=== PATIENT | female | born 1970 | race Two or more races ===

== ENCOUNTER → 2017-02-21 | Outpatient (CLI) | payer BC ==
[2015-04-15 07:00] VITALS: BP 110/58
--- NOTE | 2017-02-21 10:08 | RAD ---
DATE: 02/21/2017 EXAM: DIGITAL SCREEN BILAT W/CAD HISTORY: Screening COMPARISON: None. This is a baseline exam. This study was interpreted with the benefit of Computerized Aided Detection (CAD). FINDINGS: Breast Density: SCATTERED The breast parenchyma shows scattered fibroglandular densities. Breast parenchyma level B. No dominant mass or suspect calcifications are seen in either breast IMPRESSION: Benign findings BI-RADS CATEGORY: 2 BENIGN FINDING(S) RECOMMENDED FOLLOW-UP: 12M 12 MONTH FOLLOW-UP PQRS compliance statement: Patient information was entered into a reminder system with a target due date 02/21/2018 for the next mammogram. Mammography is a sensitive method for finding small breast cancers, but it does not detect them all and is not a substitute for careful clinical examination. A negative mammogram does not negate a clinically suspicious finding and should not result in delay in biopsying a clinically suspicious abnormality. "Our facility is accredited by the [employer] Mammography [employer]."
== END | disposition home or self-care (01) ==
LOC: MAMMO 09:10
PROVIDERS: ATTEND Obstetrics & Gynecology
DX: Z12.31 Encounter for screening mammogram for malignant neoplasm of breast (principal)
CPT/HCPCS: G0202; 77067

== ENCOUNTER → 2018-02-22 | Outpatient (CLI) | payer BC ==
[2015-04-15 07:00] VITALS: BP 110/58
--- NOTE | 2018-02-22 15:53 | RAD ---
DATE: 02/22/2018 EXAM: DIGITAL SCREEN BILAT W/CAD HISTORY: Routine screening COMPARISON: 02/21/2017 This study was interpreted with the benefit of Computerized Aided Detection (CAD). Breast Density: SCATTERED The breast parenchyma shows scattered fibroglandular densities. Breast parenchyma level B. FINDINGS: No new or enlarging breast densities are seen. No suspicious microcalcifications are evident. IMPRESSION: There is no mammographic evidence of malignancy in either breast. BI-RADS CATEGORY: 2 BENIGN FINDING(S) RECOMMENDED FOLLOW-UP: 12M 12 MONTH FOLLOW-UP PQRS compliance statement: Patient information was entered into a reminder system with a target due date for the next mammogram. Mammography is a sensitive method for finding small breast cancers, but it does not detect them all and is not a substitute for careful clinical examination. A negative mammogram does not negate a clinically suspicious finding and should not result in delay in biopsying a clinically suspicious abnormality. "Our facility is accredited by the [employer] Mammography Program."
== END | disposition home or self-care (01) ==
LOC: MAMMO 14:01
PROVIDERS: ATTEND Obstetrics & Gynecology
DX: Z12.31 Encounter for screening mammogram for malignant neoplasm of breast (principal)
CPT/HCPCS: 77067

== ENCOUNTER → 2018-09-27 | Outpatient (CLI) | payer BC ==
[2015-04-15 07:00] VITALS: BP 110/58
--- NOTE | 2018-09-27 16:50 | RAD ---
EXAM: Right calcaneus, 2 views. HISTORY: Pain. COMPARISON: None. FINDINGS: 2 views of the right calcaneus are obtained. There is slight enthesopathy at the Achilles tendon insertion. There is a tiny plantar spur. There is no fracture, dislocation or subluxation. No lytic or sclerotic osseous lesion is seen. IMPRESSION: No acute osseous finding. Electronically signed by: Tamra Babcock MD (09/27/2018 4:47 PM) [facility]
== END | disposition home or self-care (01) ==
LOC: RAD 15:59
PROVIDERS: ATTEND Family Medicine
DX: M77.51 Other enthesopathy of right foot and ankle (principal)
CPT/HCPCS: 73650

== ENCOUNTER → 2019-06-21 | Outpatient (CLI) | payer BC ==
[2018-10-20 11:00] VITALS: BP 138/62
[~2019-06-21] MED LIST: FERR325T20 PO; PANT20TA2 PO
--- NOTE | 2019-06-22 15:36 | RAD ---
History: Routine screening. Technique: Bilateral digital mammographic routine views were obtained with CAD - computer aided detection. Comparison: 02/21/2017, 02/22/2018. Findings: Breast Tissue Density B :The breast tissue is composed of mixed fatty and fibroglandular tissue. There are no suspicious masses, microcalcifications or areas of architectural distortion. Impression: Negative mammogram. BI-RADS Category 1: Negative. Normal interval followup. A mammogram does not have 100% sensitivity and therefore a negative imaging study should not delay further work up of a suspicious abnormality. The patient will receive a letter with the results in the mail. Patient information is entered into the reminder system with a target due date for the next screening mammogram. The patient will receive a reminder. "Our facility is accredited by the [employer] Mammography Program." BI-RADS 1 -- negative findings (within normal)
== END ==
LOC: MAMMO 08:00
PROVIDERS: ATTEND Obstetrics & Gynecology
DX: Z12.31 Encounter for screening mammogram for malignant neoplasm of breast (principal)
CPT/HCPCS: 77067

== ENCOUNTER → 2019-06-26 | Outpatient (CLI) | payer BC ==
[2018-10-20 11:00] VITALS: BP 138/62
--- NOTE | 2019-06-26 09:43 | RAD ---
EXAM: Pelvic Ultrasound Complete INDICATION: Pelvic mass ? TECHNIQUE: Real-time ultrasound of the pelvis with permanent freeze-frame documentation. Transabdominal imaging only was performed. Patient refused endovaginal ultrasound. COMPARISON:?None. ? FINDINGS: ? UTERUS:?Uterus 12.4 x 5.8 x 5.9 cm.? Endometrial thickness 0.7 cm. At the low uterine segment is a 5.6 x 5.2 cm round mass with internal vascularity. ? RIGHT OVARY/ADNEXA: Right ovary is obscured by bowel gas and not well seen. LEFT OVARY/ADNEXA:?Left ovary 2.9 x 2.3 x 2.8 cm. ?Unremarkable. Normal ovarian blood flow. ? OTHER:?No evidence of significant pelvic free fluid. ? IMPRESSION: ? A 5.6 cm round mass is present at the lower uterine segment, likely a uterine fibroid but would be better characterized endovaginal ultrasound or pelvic MRI. Otherwise, possibly from a nonvisualized right ovary due to bowel gas, pelvic ultrasound is unremarkable. Electronically signed by: Pat Moore MD (06/26/2019 9:39 AM) [id number]
== END | disposition home or self-care (01) ==
LOC: US 06:40
PROVIDERS: ATTEND Obstetrics & Gynecology
DX: R19.09 Other intra-abdominal and pelvic swelling, mass and lump (principal)
CPT/HCPCS: 76856

== ENCOUNTER 2020-11-22 15:26 | Inpatient (IN) | payer BC ==
[~2020-11-22] VITALS: Ht 167.6 cm; Wt 110.1 kg
--- NOTE | 2020-11-22 15:57 | RAD ---
EXAM: Chest, single view. HISTORY: Palpitations. COMPARISON: None. FINDINGS: A frontal view of the chest is obtained. There is no infiltrate, pleural effusion or pneumo thorax. There is a prominent cardiac silhouette, likely accentuated due to a moderate hiatal hernia. IMPRESSION: Prominent cardiac silhouette, likely accentuated due to a moderate hiatal hernia. Electronically signed by: Tamra Babcock MD (11/22/2020 3:54 PM) [facility]
[2020-11-22 15:58] LABS: BILIRUBIN,URINE NEGATIVE (NEG); CLARITY,URINE CLEAR; NITRITE,URINE NEGATIVE (NEG); PH,URINE 6.5 (<5.0-8.0); PROTEIN,URINE NEGATIVE (NEG-TRACE); UROBILINOGEN,URINE 0.2 mg/dL (0.2 mg/dL)
[2020-11-22 16:03] LABS: BARBITURATES NEG (NEG); BENZODIAZEPINES NEG (NEG); CANNABINOIDS NEG (NEG); COCAINE NEG (NEG); METHADONE NEG (NEG); OPIATES NEG (NEG); PHENCYCLIDINE NEG (NEG)
[2020-11-22 16:05] LABS: AMPHETAMINE/METHAMPHETAMINE NEG (NEG)
--- NOTE | 2020-11-22 16:08 | PHYS DOC ---
Past Medical History Past Medical History: No Pertinent History Past Surgical History: , Other Additional Past Surgical Histo: left knee Smoking Status: Never Smoker Alcohol Use: None Drug Use: None General Adult EDM: Chief Complaint: Palpitations HPI: HPI: Patient is a 50 year old female who presents with Tuesday. She states she was just sitting and began having palpitations and become dizzy and then passed out. She states since then she has been having these same spells but has not been passing out. Patient states that she takes no medications other than some ibuprofen or Tylenol. Patient denies chest pain, shortness of breath, vision change, numbness or tingling, focal weakness, abdominal pain, nausea, vomiting, diarrhea, back pain, urinary symptoms, blood in her stool or urine. History is CVA, anemia and a GI bleed. I asked the patient about her anemia and GI bleed and she states that she has not had a menstrual period in the last 7 months but she never bled that much. She states that Dr. Urena had stated to her that she had a GI bleed but she had a colonoscopy 2 years ago when they did not see any bleeding. She states she has not seen any blood in her stool. Review of Systems: Review of Systems: Constitutional: Denies fever or chills. [] Eyes: Denies change in visual acuity. [] HENT: Denies nasal congestion or sore throat. [] Respiratory: Denies cough or shortness of breath. [] Cardiovascular: Denies chest pain or edema. [] GI: Denies abdominal pain, nausea, vomiting, bloody stools or diarrhea. [] : Denies dysuria. [] Musculoskeletal: Denies back pain or joint pain. [] Integument: Denies rash. [] Neurologic: Denies headache, focal weakness or sensory changes. [] Endocrine: Denies polyuria or polydipsia. [] Lymphatic: Denies swollen glands. [] Psychiatric: Denies depression or anxiety. [] Heart Score: C/O Chest Pain: No HEART Score for Chest Pain: HEART Score for Chest Pain Response (Comments) Value History Slighlty/Non-Suspicious 0 ECG Normal 0 Age >45 - < 65 1 Risk Factors 1 or 2 Risk Factors 1 Troponin < Normal Limit 0 Total 2 Risk Factors: Risk Factors: DM, Current or recent (<one month) smoker, HTN, HLP, family history of CAD, obesity. Risk Scores: Score 0 - 3: 2.5% MACE over next 6 weeks - Discharge Home Score 4 - 6: 20.3% MACE over next 6 weeks - Admit for Clinical Observation Score 7 - 10: 72.7% MACE over next 6 weeks - Early Invasive Strategies Allergies: Allergies: Allergies Coded Allergies Type Severity Reaction Last Updated Verified No Known Drug Allergies 04/13/15 No Physical Exam: PE: Constitutional: Well developed, well nourished, no acute distress, non-toxic appearance. [] HENT: Normocephalic, atraumatic, bilateral external ears normal, oropharynx moist, no oral exudates, nose normal. [] Eyes: PERRLA, EOMI, conjunctiva normal, no discharge. [] Neck: Normal range of motion, no tenderness, supple, no stridor. [] Cardiovascular:Heart rate regular rhythm, no murmur [] Lungs & Thorax: Bilateral breath sounds clear to auscultation [] Abdomen: Bowel sounds normal, soft, no tenderness, no masses, no pulsatile masses. [] Skin: Warm, dry, no erythema, no rash. [] Back: No tenderness, no CVA tenderness. [] Extremities: No tenderness, no cyanosis, no clubbing, ROM intact, no edema. [] Neurologic: Alert and oriented X 3, normal motor function, normal sensory function, no focal deficits noted. [] Psychologic: Affect normal, judgement normal, mood normal. [] EKG: EK and read by Dr. Gonzalez is a sinus rhythm and no STEMI [] [address] Gonzalez as Sinus rhythm and no ATEMI Radiology/Procedures: Radiology/Procedures: [] Impression: [facility] [address] [place], [place] [id number] IMAGING REPORT Signed PATIENT: SHADI ANDERSONUNT: [id number] : 1970 LOCATION: ER AGE: 50 SEX: F EXAM STATUS: PRE ER ORD. PHYSICIAN: SERGEI MELO APRN REASON: palpitations PROCEDURE: PORTABLE CHEST 1V EXAM: Chest, single view. HISTORY: Palpitations. COMPARISON: None. FINDINGS: A frontal view of the chest is obtained. There is no infiltrate, pleural effusion or pneumothorax. There is a prominent cardiac silhouette, likely accentuated due to a moderate hiatal hernia. IMPRESSION: Prominent cardiac silhouette, likely accentuated due to a moderate hiatal hernia. Electronically signed by: Tamra Matthews MD (11/22/2020 3:54 PM) [facility] DICTATED and SIGNED BY: TAMRA MATTHEWS MD DATE: 11/22/20 [id number] [facility] [address] [place] [address] IMAGING REPORT Signed PATIENT: SHADI ANDERSONUNT: [id number] : 1970 LOCATION: ER AGE: 50 SEX: F EXAM STATUS: REG ER ORD. PHYSICIAN: SERGEI MELO APRN REASON: palpitations, syncope PROCEDURE: CT HEAD WO CONTRAST Exam: CT head INDICATION: Palpitations, syncope TECHNIQUE: Sequential axial images through the head were obtained without the administration of IV contrast. Exposure: One or more of the following in the visualized dose reduction techniques were utilized for this examination: 1. Automated exposure control 2. Adjustment of the MA and/or KV according to patient size 3. Use of iterative of reconstructive technique Comparisons: None FINDINGS: No focal parenchymal lesion or hemorrhage is identified. There is no midline shift or sulcal effacement. Mild patchy evidence in the periventricular white matter No acute vascular territory infarction is identified. Raya-white distinction is preserved. The ventricular system is within normal limits without compression hydrocephalus. The basal cisterns are well maintained. The visualized portions of the paranasal sinuses and mastoid air cells are well- pneumatized. No acute fractures. IMPRESSION: Mild small vessel schema change, technically age indeterminate without recent prior imaging. Electronically signed by: Raul Newton MD (11/22/2020 5:05 PM) [facility] DICTATED and SIGNED BY: RAUL NEWTON MD DATE: 11/22/20 [id number] 0 [facility] [address] [place] [address] IMAGING REPORT Signed PATIENT: KATHARINA ANDERSONCOUNT: [id number] : 1970 LOCATION: ER AGE: 50 SEX: F EXAM STATUS: REG ER ORD. PHYSICIAN: SERGEI MELO APRN REASON: palpitations, syncope/ anemia, hx gi bleed PROCEDURE: CT ANGIO CHEST W ABD PEL W/ Exam: CT of chest, abdomen and pelvis INDICATION: Palpitations, syncope TECHNIQUE: Sequential axial images through the chest obtained following the administration 100 mL of Omni 350 IV contrast. Sagittal and coronal reformatted images were reconstructed from the axial data and reviewed. 3-D reformatted images were reconstructed from the axial data and reviewed. Exposure: One or more of the following in the visualized dose reduction techniques were utilized for this examination: 1. Automated exposure control 2. Adjustment of the MA and/or KV according to patient size 3. Use of iterative of reconstructive technique Comparisons: None FINDINGS: Utilized portions of the thyroid are unremarkable. No enlarged mediastinal lymph nodes are identified. Heart size is normal. No pericardial effusion. Thoracic aorta has a normal course and caliber. Pulmonary artery is not enlarged. No pulmonary embolus identified within the main or lobar pulmonary arteries. Airways are patent. No consolidation or pneumothorax. No suspicious lung nodules are identified. No pleural effusion or thickening. Liver, spleen, pancreas, gallbladder and adrenals are unremarkable. No perinephric inflammation or hydronephrosis. No renal or ureteral calculi are identified. Bladder is partially distended and appears thin-walled. Uterus is nonenlarged. No abnormal adnexal mass. Large and small bowel are unremarkable. Appendix is normal. No free intra- abdominal air or fluid. No obstruction. Abdominal aorta has normal course and caliber. Abdominal vasculature is patent. No enlarged intra-abdominal lymph nodes are identified. No suspicious osseous lesions or acute fractures. IMPRESSION: 1. No pulmonary embolus identified within the main, lobar or segmental pulmonary arteries. 2. No acute process identified in the abdomen 3. Moderate-sized hiatal hernia. Electronically signed by: Raul Newton MD (11/22/2020 5:40 PM) [facility] DICTATED and SIGNED BY: RAUL NEWTON MD DATE: 11/22/20 [id number] 0 Course & Med Decision Making: Course & Med Decision Making Pertinent Labs and Imaging studies reviewed. (See chart for details) See HPI. Alert and oriented x4. Ambulatory with steady gait. Speaks in full clear sentences. Abdomen is soft and nontender. No nystagmus. Lungs are clear in all lobes. Hemoglobin is 6.6. I have ordered a unit of blood for her. Patient will be admitted to Dr. Bryson. No extremity edema. Skin pink warm and dry. Chest x-ray is clear. I spoke to Dr. Bryson for admission. He stated to put in for a CBC in the morning. He stated the 1 unit of blood at this time was fine. [] Dragon Disclaimer: Dragon Disclaimer: This electronic medical record was generated, in whole or in part, using a voice recognition dictation system. Departure Departure Impression: Primary Impression: Anemia Qualified Codes: D64.9 - Anemia, unspecified Additional Impressions: Palpitations Syncope Qualified Codes: R55 - Syncope and collapse Disposition: ADMITTED INPATIENT Admitting Physician: Ryland Bryson Condition: STABLE Referrals: RYLAND BRYSON MD (PCP) SERGEI MELO APRN Nov 22, 2020 16:08
[2020-11-22 16:15] LABS: COLOR,URINE STRAW
[2020-11-22] MEDS ORDERED: IV NORMAL SALINE 1000ML BAG 1,000 ML IV ONE (16:15)
[2020-11-22 16:16] LABS: BACTERIA,URINE MODERATE /HPF (0-FEW)
[2020-11-22 16:17] LABS: RBC,URINE 0 /HPF (0-2); WBC,URINE RARE /HPF (0-4)
[2020-11-22 16:19] LABS: BASO % 1 % (0-3); EOS % 0 % (0-3); HEMATOCRIT 22.9 % (36.0-47.0); LYMPH # 2.1 x10^3/uL (1.0-4.8); LYMPH % 29 % (24-48); MEAN CORPUSCULAR HEMOGLOBIN 17 pg (25-35); MEAN CORPUSCULAR HGB CONC 29 g/dL (31-37); MEAN CORPUSCULAR VOLUME 58 fL (79-100); MONO # 0.7 x10^3/uL (0.0-1.1); MONO % 9 % (0-9); NEUT # 4.2 x10^3/uL (1.8-7.7); NEUT % 61 % (31-73); PLATELET COUNT 410 x10^3/uL (140-400); RED BLOOD COUNT 3.97 x10^6/uL (3.50-5.40); RED CELL DISTRIBUTION WIDTH 20.9 % (11.5-14.5)
[2020-11-22 16:22] LABS: HEMOGLOBIN 6.6 g/dL (12.0-15.5)
[2020-11-22 16:23] LABS: CALCIUM 8.9 mg/dL (8.5-10.1); CREATININE 0.8 mg/dL (0.6-1.0); GFR 75.3; POTASSIUM 3.7 mmol/L (3.5-5.1)
[2020-11-22 16:28] LABS: ALBUMIN 3.7 g/dL (3.4-5.0); ALBUMIN/GLOBULIN RATIO 0.9 (1.0-1.7); TOTAL BILIRUBIN 0.4 mg/dL (0.2-1.0); TOTAL PROTEIN 7.6 g/dL (6.4-8.2)
[2020-11-22] MEDS ORDERED: IOHEXOL 350 MG/ML 100 ML VIAL. IV ONE (16:30)
[2020-11-22] MEDS ORDERED: metroNIDAZOLE 500 MG TABLET PO ONE (16:45)
[2020-11-22] MEDS ORDERED: CONTRAST GIVEN. MC PRN (16:45)
[2020-11-22 16:55] LABS: HYPOCHROMIA MOD; MICROCYTOSIS MARKED; PLT ESTIMATE ADEQUATE (ADEQUATE); POLYCHROMASIA SLIGHT
[2020-11-22 16:56] LABS: ANISOCYTOSIS MOD
--- NOTE | 2020-11-22 17:07 | RAD ---
Exam: CT head INDICATION: Palpitations, syncope TECHNIQUE: Sequential axial images through the head were obtained without the administration of IV co ntrast. Exposure: One or more of the following in the visualized dose reduction techniques were utilized for this examination: 1. Automated exposure control 2. Adjustment of the MA and/or KV according to patient size 3. Use of iterative of reconstructive technique Comparisons: None FINDINGS: No focal parenchymal lesion or hemorrhage is identified. There is no midline shift or sulcal effaceme nt. Mild patchy evidence in the periventricular white matter No acute vascular territory infarction is id entified. Raya-white distinction is preserved. The ventricular system is within normal limits without compression hydrocephalus. The basal cisterns are well maintained. The visualized portions of the paranasal sinuses and mastoid air cells are well-pneumatized. No acute fractures. IMPRESSION: Mild small vessel schema change, technically age indeterminate without recent prior imaging. Electronically signed by: Raul Hunter MD (11/22/2020 5:05 PM) [facility]
[2020-11-22 17:42] LABS: PROTHROMBIN TIME PATIENT 14.2 SEC (11.7-14.0)
--- NOTE | 2020-11-22 17:43 | RAD ---
Exam: CT of chest, abdomen and pelvis INDICATION: Palpitations, syncope TECHNIQUE: Sequential axial images through the chest obtained following the administration 100 mL of Omni 350 IV contrast. Sagittal and coronal reformatted images were reconstructed from the axial data and reviewed. 3-D reformatted images were reconstructed from the axial data and reviewed. Exposure: One or more of the following in the visualized dose reduction techniques were utilized for this examination: 1. Automated exposure control 2. Adjustment of the MA and/or KV according to patient size 3. Use of iterative of reconstructive technique Comparisons: None FINDINGS: Utilized portions of the thyroid are unremarkable. No enlarged mediastinal lymph nodes are identified . Heart size is normal. No pericardial effusion. Thoracic aorta has a normal course and caliber. Pulmon surjit artery is not enlarged. No pulmonary embolus identified within the main or lobar pulmonary arteri es. Airways are patent. No consolidation or pneumothorax. No suspicious lung nodules are identified. No pleural effusion or thickening. Liver, spleen, pancreas, gallbladder and adrenals are unremarkable. No perinephric inflammation or hydronephrosis. No renal or ureteral calculi are identified. Bladder is partially distended and appears thin-walled. Uterus is nonenlarged. No abnormal adnexal ma ss. Large and small bowel are unremarkable. Appendix is normal. No free intra-abdominal air or fluid. No obstruction. Abdominal aorta has normal course and caliber. Abdominal vasculature is patent. No enlarged intra-abdominal lymph nodes are identified. No suspicious osseous lesions or acute fractures. IMPRESSION: 1. No pulmonary embolus identified within the main, lobar or segmental pulmonary arteries. 2. No acute process identified in the abdomen 3. Moderate-sized hiatal hernia. Electronically signed by: Raul Hunter MD (11/22/2020 5:40 PM) [facility]
--- NOTE | 2020-11-22 18:04 | EKG ---
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
--- NOTE | 2020-11-22 18:05 | EKG ---
[facility] [address] [place] [address] Test Date: 2020-11-22 Test Time: 15:38:47 Pat Name: AMANDA ANDERSONDepartment: Room: Gender: F Branch Operations Specialist: : 1970 Requested By: SERGEI MELO Order Number: [id number] Reading MD: Measurements Intervals [place] Rate: 75 P: 39 [place]: 136 QRS: 21 QRSD: 80 T: 22 QT: 366 QTc: 411 Interpretive Statements SINUS RHYTHM QRS(T) CONTOUR ABNORMALITY CONSIDER ANTEROLATERAL MYOCARDIAL DAMAGE POSSIBLY ABNORMAL ECG RI6.01 No previous ECG available for comparison
[2020-11-22 22:26] VITALS: BP 126/49
[2020-11-22 22:42] VITALS: BP 131/66
[2020-11-22 22:57] VITALS: BP 121/59
[2020-11-22 23:15] VITALS: BP 115/64
[2020-11-23] VITALS (7 sets, daily range): BP systolic 108–131; BP diastolic 43–66
[2020-11-23 01:42] LABS: HEMATOCRIT 24.5 % (36.0-47.0); HEMOGLOBIN 7.1 g/dL (12.0-15.5); RED BLOOD COUNT 4.02 x10^6/uL (3.50-5.40); RED CELL DISTRIBUTION WIDTH 22.5 % (11.5-14.5); WHITE BLOOD COUNT 6.1 x10^3/uL (4.0-11.0)
--- NOTE | 2020-11-23 10:37 | PDOC ---
Provider Note Date of Service: DATE: 11/23/20 TIME: 10:37 Provider Note Pt seen.H&P dictated.[id number]. Justifications for Admission Other Justification ROBINA BRYSON MD Nov 23, 2020 10:37
[2020-11-23] MEDS ORDERED: IRON SUCROSE COMPLEX 500 MG in IV NORMAL SALINE 250ML 250 ML IV ONE (11:00)
--- NOTE | 2020-11-23 11:25 | HP ---
ADMIT DATE: 11/22/2020 LOCATION: [facility] REASON FOR ADMISSION TO THE HOSPITAL: 1. Palpitations. 2. Anemia. HISTORY OF PRESENT ILLNESS: The patient is a 50-year-old female. The patient was having palpitations that was Tuesday and became lightheaded, dizzy, having the spells more often, came to the emergency room. Her hemoglobin was low at 6.8 and EKG negative for ischemia. The patient was admitted to the hospital, was given 1 unit of blood, hemoglobin went up to 7.1. Her troponin was 0.01, went up to 0.1. EKG negative for ischemia. alarm security or surveillance monitor negative. PAST MEDICAL HISTORY: The patient was in the hospital two years ago for anemia. At that time, recommended EGD and colonoscopy. The patient says she was anemic for a long time, many years and she took iron which made her constipated, she stopped. Last menstrual period was seven months ago. She went through menopause, did not have any EGD or colonoscopy in the past. PAST SURGICAL HISTORY: Had a also had knee problems, but is getting better. FAMILY HISTORY: Unremarkable. SOCIAL HISTORY: Smoking history: Denies smoking, alcohol, drug abuse. 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 ALLERGIES: No known allergies. MEDICATIONS: None. REVIEW OF SYSTEMS: She denies any vomiting blood or black stools and any other bleeding problems. PHYSICAL EXAMINATION: GENERAL: The patient is pleasant, not in any distress. VITAL SIGNS: Temperature 98, pulse 79, respirations 18, blood pressure 152/71, 98% on room air. HEENT: Head is atraumatic. Pupils equal. Oral cavity, no congestion. NECK: Supple. Thyroid not enlarged. JVD not elevated. CHEST: Symmetrical. CARDIAC: S1, S2. LUNGS: Clear. ABDOMEN: Soft. No mass palpable. EXTERNAL GENITALIA: No [place]. RECTUM: Deferred. EXTREMITIES: No calf tenderness. No edema. NEUROLOGIC: No focal deficits. Moving all extremities. LABORATORY DATA: White count of 7, hemoglobin 6.6, platelets 110. MCV 58, low, and INR 1.1. Electrolytes show sodium 138, potassium 3.7, chloride 101, bicarbonate 26, anion gap 11, BUN 15, creatinine 0.8, glucose 96. LFTs normal. BNP 186. TSH 1.5. Troponin 0.017, went up to 0.17. EKG done, negative for ischemia. Chest x-ray was negative. CT head negative. CT of the chest, abdomen and pelvis, no PE, no acute process, moderate size hiatal hernia. FINAL IMPRESSION: 1. Palpitations and dizziness, possibly secondary to anemia. 2. Severe anemia, hemoglobin 6.7. 3. Slight elevation in troponin, possibly demand ischemia. PLAN: At this time, the patient is admitted to the hospital. alarm security or surveillance monitor. EKG, serial cardiac troponin, 1 more set. Cardiology is consulted and patient would need outpatient EGD and colonoscopy and also outpatient followup with hematology. The patient was given 1 unit of RBC and hemoglobin went up from 6.8 to 7.1. We will also give her IV iron infusion and recommended to take a B complex and vitamin C with iron [id number] at home and see back in a couple of weeks in the office. She will be discharged later today. HETAL DR: Stacy TID: [id number]
--- NOTE | 2020-11-23 15:42 | EKG ---
[facility] [address] [place] [address] Test Date: 2020-11-23 Test Time: 15:33:07 Pat Name: AMANDA ANDERSONDepartment: Room: 2 Gender: F Rfid Developer: : 1970 Requested By: ROBINA BRYSON Order Number: [id number] Reading MD: Measurements Intervals [place] Rate: 61 P: 46 [place]: 144 QRS: 36 QRSD: 72 T: 41 QT: 392 QTc: 396 Interpretive Statements SINUS RHYTHM NORMAL ECG RI6.02 Compared to ECG 11/22/2020 16:31:36 No significant changes
[2020-11-24 03:00] VITALS: BP 116/59
[2020-11-24 07:00] VITALS: BP 114/55
--- NOTE | 2020-11-24 08:56 | PDOC ---
PROGRESS NOTES Date of Service: DATE: 11/24/20 TIME: 08:54 Subjective Subjective feels good ,no cp or palpitations Objective Objective Vital Signs Date Time Temp Pulse Resp B/P (MAP) Pulse Ox O2 Delivery O2 Flow Rate FiO2 11/24/20 03:00 97.9 61 18 116/59 (78) 98 Room Air 97.9 Intake and Output 11/24/20 07:00 Intake Total 840 ml Balance 840 ml Intake Oral 840 ml # Voids 3 Physical Exam Abdomen: Soft Heart: Regular rate, Normal S1 Extremities: No clubbing General: Alert HEENT: Atraumatic Lungs: Clear to auscultation MUSCULOSKELETAL: No deformity Neck: No JVD Neuro: Normal speech Psych/Mental Status: Mental status NL Skin: No breakdown Diagnosis Problem List Problems Medical Problems: (1) Palpitations Status: Acute (2) Syncope Status: Acute Assessment Assessment Problems Medical Problems: (1) Palpitations Status: Acute (2) Syncope Status: Acute FINAL IMPRESSION: 1. Palpitations and dizziness, possibly secondary to anemia. 2. Severe anemia, hemoglobin 6.7. 3. Slight elevation in troponin, possibly demand ischemia. PLAN: hb 7.1 aftr 1 u prbc troponin neg 0.01,EKG -ve low iron , iron transfused iv spoke with cardiology , can go home today. out pt echo and stress test. At this time, the patient is admitted to the hospital. alarm security or surveillance monitor. EKG, serial cardiac troponin, 1 more set. Cardiology is consulted and patient would need outpatient EGD and colonoscopy and also outpatient followup with hematology. The patient was given 1 unit of RBC and hemoglobin went up from 6.8 to 7.1. We will also give her IV iron infusion and recommended to take a B complex and vitamin C with iron [id number] at home and see back in a couple of weeks in the office. She will be discharged later today. Plan Plan of Care Problems Medical Problems: (1) Palpitations Status: Acute (2) Syncope Status: Acute Comment Review of Relevant I have reviewed the following items luis (where applicable) has been applied. Labs Laboratory Tests Test 11/23/20 11:30 Iron Level 16 ug/dL (50-170) Total Iron Binding Capacity 465 ug/dL (250-450) Iron Saturation 3 % (15-34) Ferritin 5 ng/mL (8-252) Troponin I Quantitative < 0.017 ng/mL (0.000-0.055) Medications Current Medications Iron Sucrose 500 mg/Sodium Chloride 275 ml @ 78.571 mls/ hr 1X ONCE IV Last administered on 11/23/20at 11:58; Start 11/23/20 at 11:00; Stop 11/23/20 at 14:29; Status DC Vitals/I & O Vital Sign - Last 24 Hours 11/23/20 11/23/20 11/23/20 11/23/20 11:00 15:00 19:00 20:00 Temp 98.4 98.7 98.4 98.4 98.7 98.4 Pulse 62 67 72 Resp 18 18 18 B/P (MAP) 130/43 (72) 131/66 (87) 108/54 (72) Pulse Ox 99 98 100 O2 Delivery Room Air Room Air Room Air Room Air 11/23/20 11/24/20 23:00 03:00 Temp 97.8 97.9 97.8 97.9 Pulse 67 61 Resp 18 18 B/P (MAP) 113/48 (69) 116/59 (78) Pulse Ox 98 98 O2 Delivery Room Air Room Air Intake and Output 11/23/20 11/23/20 11/24/20 15:00 23:00 07:00 Intake Total 640 ml 200 ml Balance 640 ml 200 ml Justifications for Admission Other Justification ROBINA BRYSON MD Nov 24, 2020 08:56
[2020-11-24 11:00] VITALS: BP 126/57
--- NOTE | 2020-11-24 11:04 | NUR ---
SW following. Discussed with RN, pt from home, room air, regular diet. Discharge order for home with self care. RN advised no SW needs.
--- NOTE | 2020-11-24 12:56 | NUR ---
Patient discharge home with self care today via ambulation and accompanied by aid. Patient is stable, IV removed, and discharge paperwork given to patient. Patient verbalized understanding of followup and discharge instruction.
--- NOTE | 2020-11-24 16:21 | PDOC2 ---
CONSULT Date of Consult Date of Consult DATE: 11/24/20 TIME: 16:14 Reason for Consult Reason for Consult: Syncope Referring Physician Referring Physician: Dr. Stover Identification/Chief Complaint Chief Complaint Palpitations, dizziness and an episode of syncope Source Source: Chart review, Patient History of Present Illness Reason for Visit: The patient is a pleasant 50-year-old female who is admitted through the emergency room with a history of occasional palpitations over the last several weeks. On the day of admission she had increased palpitations and dizziness and had one episode of syncope. Initial work-up included an EKG that showed a sinus rhythm with no ischemic changes. Chest x-ray showed no acute findings. CT head scan showed no acute findings. CT chest showed no evidence of a PE but did show a moderate size hiatal hernia. Patient's cardiac enzymes have been less than 0.017 on 2 occasions and one reading of less than 0.0170. Follow-up EKG shows no ischemia. Patient was found to have an H&H on admission of 6.6/22.9. She received 1 unit of blood overnight and her morning labs show a 7.1/24.5 H&H. She is feeling well today. She denies any history of coronary disease, congestive heart failure or cardiac arrhythmias. Her rhythm has remained sinus. She has a history of a CVA, anemia and a GI bleed. Past Medical History CENTRAL NERVOUS SYSTEM: CVA GI: GI bleed Heme/Onc: Other (Anemia) Past Surgical History Past Surgical History: , Other (Left knee surgery) Family History Family History: Hypertension Social History No ALCOHOL: none Drugs: None Current Problem List Problem List Problems Medical Problems: (1) Palpitations Status: Acute (2) Syncope Status: Acute Current Medications Current Medications Current Medications Sodium Chloride 1,000 ml @ 1,000 mls/hr 1X ONCE IV Last administered on 11/22/20at 17:30; Start 11/22/20 at 16:15; Stop 11/22/20 at 17:14; Status DC Iohexol (Omnipaque 350 Mg/ml) 100 ml 1X ONCE IV Last administered on 11/22/20at 17:05; Start 11/22/20 at 16:30; Stop 11/22/20 at 16:34; Status DC Info (CONTRAST GIVEN -- Rx MONITORING) 1 each PRN DAILY PRN MC SEE COMMENTS; Start 11/22/20 at 16:45; Stop 11/24/20 at 12:59; Status DC Metronidazole (Flagyl) 2,000 mg 1X ONCE PO ; Start 11/22/20 at 16:45; Stop 11/22/20 at 16:46; Status UNV Iron Sucrose 500 mg/Sodium Chloride 275 ml @ 78.571 mls/ hr 1X ONCE IV Last administered on 11/23/20at 11:58; Start 11/23/20 at 11:00; Stop 11/23/20 at 14:29; Status DC Active Scripts Active Reported No Known Medications Prior To Admisstion (Info) Each 1 Each Allergies Allergies: Coded Allergies: No Known Drug Allergies (Unverified , 04/13/15) ROS Cardiovascular: yes Palpitations, yes Lt Headedness, yes Other (Syncopal episode) Physical Exam General: No acute distress HEENT: Atraumatic Lungs: Clear to auscultation Heart: Regular rate Abdomen: Normal bowel sounds Vitals VITALS Vital Signs Date Time Temp Pulse Resp B/P (MAP) Pulse Ox O2 Delivery O2 Flow Rate FiO2 11/24/20 11:00 98.0 68 16 126/57 (80) 98 Room Air 98.0 Labs Labs Laboratory Tests Test 11/22/20 17:15 11/23/20 00:25 11/23/20 01:57 11/23/20 11:30 Prothrombin Time 14.2 SEC (11.7-14.0) Prothromb Time International Ratio 1.1 (0.8-1.1) Activated Partial Thromboplast Time 27 SEC (24-38) White Blood Count 6.1 x10^3/uL (4.0-11.0) Red Blood Count 4.02 x10^6/uL (3.50-5.40) Hemoglobin 7.1 g/dL (12.0-15.5) Hematocrit 24.5 % (36.0-47.0) Mean Corpuscular Volume 61 fL (79-100) Mean Corpuscular Hemoglobin 18 pg (25-35) Mean Corpuscular Hemoglobin Concent 29 g/dL (31-37) Red Cell Distribution Width 22.5 % (11.5-14.5) Platelet Count 345 x10^3/uL (140-400) Troponin I Quantitative < 0.170 ng/mL (0.000-0.055) < 0.017 ng/mL (0.000-0.055) Iron Level 16 ug/dL (50-170) Total Iron Binding Capacity 465 ug/dL (250-450) Iron Saturation 3 % (15-34) Ferritin 5 ng/mL (8-252) Vitamin B12 Level 1278 pg/mL (247-911) Images Images As above. Assessment/Plan Assessment/Plan 1. Syncope. Patient had episodes of palpitations increasing to dizziness and a syncopal episode on the day of admission. She denied any chest pain or shortness of breath. As noted above CT head scan showed no acute findings in the CT chest scan also showed no acute findings. Her EKG has remained in sinus rhythm with no ischemic changes. Her troponin has been minimally elevated with one reading of less than 0.17 and 2 readings of less than 0.017. Her H&H on admission was 6.6 with a hemoglobin of 22.9 which is increased as above to 7.1 and 24.5. I believe the patient's syncopal episode is most likely due to her anemia. We will check an echocardiogram today for LV function. The patient will increase her activities and probably be discharged later today if she remains stable. Will contact her tomorrow for an outpatient monitor and office follow-up. 2. Anemia. H&H as above with improvement post blood transfusion. Work-up as per the primary service. 3. History of a CVA. No acute changes on CT head scan. Continuing present treatments and monitoring. Thank you for allowing us to participate in the care of your patient. TL JEFFRIES MD Nov 24, 2020 16:21
--- NOTE | 2020-11-24 16:23 | CARD ---
MR#: [id number] Date of Study: 11/24/2020 Ordering Physician: TL JEFFRIES, Referring Physician: TL JEFFRIES, Tech: Prudencio Cage [facility] APPROVED REPORT EXAM: Two-dimensional and M-mode echocardiogram with Doppler and color Doppler. Other Information Quality : GoodHR: 69bpm Rhythm : NSR INDICATION RISK FACTORS Obesity 2D DIMENSIONS Left Atrium(2D)3.8 (1.6-4.0cm)IVSd0.9 (0.7-1.1cm) Aortic Root(2D)3.0 (2.0-3.7cm)LVDd4.7 (3.9-5.9cm) LVOT Diameter1.9 (1.8-2.4cm)PWd0.9 (0.7-1.1cm) LVDs2.4 (2.5-4.0cm)FS (%) 48.1 % SV82.0 mlLVEF(%)79.5 (>50%) Aortic Valve AoV Peak Kaushik.160.7cm/sAoV VTI38.0cm AO Peak GR.10.3mmHgLVOT Peak Kaushik.131.5cm/s LVOT VTI 30.63cmAO Mean GR.5mmHg RUBIO (VMAX)1.35fz5YME (VTI)2.26cm2 Mitral Valve MV E Etlmrddw06.2cm/sMV DECEL [id number] MV A Tszqgqjh68.2cm/sMV CTU56cx E/A Ratio1.3MVA (PHT)3.55cm2 TDI E/Lateral E'8.9E/Medial E'10.4 Pulmonary Valve PV Peak Xcmgwtgz616.3cm/sPV Peak Grad.5mmHg Tricuspid Valve TR P. Fpqanqsp941ou/sTR Peak Gr.21mmHg LEFT VENTRICLE The left ventricle is normal size. There is normal left ventricular wall thickness. The left ventricu lar systolic function is normal and the ejection fraction is within normal range. EF 55% There is nor mal LV segmental wall motion. The left ventricular diastolic function and filling is normal for age. No left ventricle thrombus noted on this study. There is no ventricular septal defect visualized. The re is no left ventricular aneurysm. There is no mass noted in the left ventricle. RIGHT VENTRICLE The right ventricle is normal size. There is normal right ventricular wall thickness. The right ventr icular systolic function is normal. ATRIA The left atrium is mildly dilated. The right atrium size is normal. The interatrial septum is intact with no evidence for an atrial septal defect or patent foramen ovale as noted on 2-D or Doppler imagi ng. AORTIC VALVE The aortic valve is normal in structure and function. Doppler and Color Flow revealed no significant aortic regurgitation. There is no significant aortic valvular stenosis. There is no aortic valvular v egetation. MITRAL VALVE The mitral valve is normal in structure and function. There is no evidence of mitral valve prolapse. There is no mitral valve stenosis. Doppler and Color-flow revealed mild mitral regurgitation. TRICUSPID VALVE The tricuspid valve is normal in structure and function. Doppler and Color Flow revealed trace to mil d tricuspid regurgitation. There is no tricuspid valve prolapse or vegetation. There is no tricuspid valve stenosis. PULMONIC VALVE Doppler and Color Flow revealed no pulmonic valvular regurgitation. There is no pulmonic valvular riki nosis. GREAT VESSELS The aortic root is normal in size. The ascending aorta is normal in size. The IVC is normal in size a nd collapses >50% with inspiration. PERICARDIAL EFFUSION There is no pleural effusion. There is no evidence of significant pericardial effusion. Critical Notification Critical Value: No <Conclusion> The left ventricular systolic function is normal and the ejection fraction is within normal range. EF 55% There is normal LV segmental wall motion. Signed by : Vipul Sanchez, Electronically Approved : 11/24/2020 16:23:12
== END 2020-11-24 12:58 | disposition home or self-care (01) | DRG 812 ==
LOC: ER 15:26 → 5 SOUTH 20:39 → OBSVTOIN 11-23 23:58
PROVIDERS: ADMIT Internal Medicine; ATTEND Internal Medicine
PROC: 30233N1 Transfusion of Nonautologous Red Blood Cells into Peripheral Vein, Percutaneous Approach (ICD-10-PCS; principal; 2020-11-23)
DX: D64.9 Anemia, unspecified (principal); I24.8 Other forms of acute ischemic heart disease; K44.9 Diaphragmatic hernia without obstruction or gangrene; Z82.49 Family history of ischemic heart disease and other diseases of the circulatory system; Z86.73 Personal history of transient ischemic attack (TIA), and cerebral infarction without residual deficits; Z87.891 Personal history of nicotine dependence
CPT/HCPCS: 36415; 70450; 71045; 71275; 74177; 80053; 80307; 81001; 82607; 82728; 83020; 83540; 83550; 83735; 83880; 84443; 84484; 85025; 85027; 85379; 85610; 85730; 86850; 86900; 86901; 86920; 87086; 93005; 93306; G0378; G0379; J1756; J7030; J7050; P9016; Q9967; 99285-25

== ENCOUNTER → 2021-03-16 | Outpatient (CLI) | payer BC ==
--- NOTE | 2021-03-17 12:16 | RAD ---
Bilateral digital screening mammogram 03/16/2021 CLINICAL HISTORY: Screening study. Digital MLO and CC mammograms of both breasts were obtained. Comparison study is dated 06/21/2019 . The breast parenchyma is composed of scattered fibroglandular densities which could obscure a lesion on mammography (breast density B). Benign-appearing calcifications are seen within both breasts. No s piculated mass is seen. No malignant appearing calcification or area of architectural distortion is n oted. Impression: BI-RADS Category 1: Negative. There is no mammographic evidence of malignancy. Routine y early screening mammography is recommended for follow-up. This examination was reviewed with the aid of computer-aided detection. A mammogram does not have 100% sensitivity and therefore a negative imaging study should not delay fu rther work up of a suspicious abnormality. Patient information is entered into the reminder system with a target due date for the next screening mammogram of 03/16/2022. "Our facility is accredited by the [employer] Mammography [employer]." Electronically signed by: Lucius Hinojosa MD (03/17/2021 12:14 PM) [id number]
== END ==
LOC: MAMMO 15:05
PROVIDERS: ATTEND Internal Medicine
DX: Z12.31 Encounter for screening mammogram for malignant neoplasm of breast (principal)
CPT/HCPCS: 77067

== ENCOUNTER → 2021-05-18 | Outpatient (CLI) | payer BC ==
[2021-05-18] VITALS (7 sets, daily range): BP systolic 108–187; BP diastolic 47–79
[~2021-05-18] VITALS: Ht 165.1 cm; Wt 108.9 kg
[~2021-05-18] MED LIST changes: +ACET325T9 PO; +IBUP-5 PO; +OMEP20CA16 PO
[2021-05-18 09:03] LABS: HEMOGLOBIN 5.3 g/dL (12.0-15.5)
== END | disposition home or self-care (01) ==
LOC: OPS 08:07
PROVIDERS: ATTEND Internal Medicine
DX: D50.9 Iron deficiency anemia, unspecified (principal); Z87.891 Personal history of nicotine dependence; Z86.73 Personal history of transient ischemic attack (TIA), and cerebral infarction without residual deficits
CPT/HCPCS: 36415; 36430; 85014; 85018; 86850; 86900; 86901; 86920; P9016